=== PATIENT | female | born 1965 | race Caucasian/White ===

== ENCOUNTER 2025-03-14 08:24 | Outpatient (CLI) | payer OTHER, MEDICAID | END 2025-03-14 08:25 | disposition home or self-care (01) | LOC: CSHCT 08:24 | PROVIDERS: ATTEND Nurse Practitioner Family | DX: J44.9 Chronic obstructive pulmonary disease, unspecified (principal); R74.8 Abnormal levels of other serum enzymes; R10.10 Upper abdominal pain, unspecified; K76.0 Fatty (change of) liver, not elsewhere classified; Z90.49 Acquired absence of other specified parts of digestive tract; N28.1 Cyst of kidney, acquired | CPT/HCPCS: 71046; 74170 ==